=== PATIENT | male | born 1980 | race Caucasian/White ===

== ENCOUNTER 2018-12-24 09:08 | Day surgery (SDC) | payer OTHER ==
[2018-12-23 10:28] VITALS: BMI 25.1
[~2018-12-24 09:08] MED LIST: BUPIVACAINE HCL/PF 0.25% (2.5MG/ML) 10 ML VIAL IJ ONE
[2018-12-24] MEDS ORDERED: BUPIVACAINE HCL/PF 2.5 MG/ML - 30 ML VIAL IJ ONE (10:10)
[2018-12-24] MEDS ORDERED: DEXAMETHASONE SOD PHOSPHATE 4 MG/1 ML VIAL ONE (10:20)
[2018-12-24] MEDS ORDERED: ONDANSETRON 4 MG/2 ML VIAL ONE (10:20)
[2018-12-24] MEDS ORDERED: MIDAZOLAM HCL 2 MG/2 ML SINGLE DOSE VIAL ONE (10:21)
[2018-12-24] MEDS ORDERED: PROPOFOL 20 ML ONE (10:31)
[2018-12-24] MEDS ORDERED: ceFAZolin SODIUM 1 GM VIAL ONE (10:32)
[2018-12-24] MEDS ORDERED: SUCCINYLCHOLINE CHLORIDE 200 MG/10 ML SYRINGE ONE (10:32)
[2018-12-24] MEDS ORDERED: oxyCODONE HCL 5 MG TABLET PO PRN ×2 (11:20)
[2018-12-24] MEDS ORDERED: ONDANSETRON 4 MG/2 ML VIAL IVPUSH PRN (11:20)
[2018-12-24] MEDS ORDERED: BUPIVACAINE HCL/PF 0.25% (2.5MG/ML) 10 ML VIAL IJ ONE (11:25)
[2018-12-24] MEDS ORDERED: LACTATED RINGERS SOLUTION 1,000 ML IV SCH (11:30)
[2018-12-24 14:05] VITALS: BP 121/72; PULSE 70; TEMP 97.9
--- NOTE | 2018-12-24 14:48 | OP ---
DATE OF OPERATION: 12/24/2018 Done at [facility] SURGEON: Amor Freitas MD BIBLICAL STUDIES PROFESSOR: MJ Turner PREOPERATIVE DIAGNOSES: 1. Left knee lateral meniscal tear. 2. Left knee cartilage injury. 3. Left knee synovitis. POSTOPERATIVE DIAGNOSES: 1. Left knee lateral meniscal tear. 2. Left knee cartilage injury. 3. Left knee synovitis. PROCEDURES: 1. Left knee arthroscopy with partial meniscectomy lateral meniscus, CPT code 18380. 2. Left knee arthroscopy with chondroplasty, CPT code 40112. 3. Left knee arthroscopy with synovectomy, CPT code 08285. FINDINGS: 1. Medial meniscus tearing. 2. Lateral meniscus bucket handle tear from the posterior to central 1/3 with a complex tear of the anterior 1/3 of the lateral meniscus. 3. Synovitis patellofemoral medial and lateral notch area. 4. Minimal cartilage injury medial joint line. 5. ACL and PCL intact. 6. Minor grade 2 changes anterior lateral tibial plateau. 7. Central grade 2 cartilage injury patella and patellofemoral trochlea. 8. Large medial plica with thickened scar tissue anteriorly and medially. PROCEDURE: Informed consent was obtained. The patient came to the operating room, where the lower extremity was prepped and draped in a sterile fashion. A tourniquet was placed on the upper thigh, but not inflated. Using standard arthroscopic technique, a lateral incision and portal was made to allow for introduction of the camera into the suprapatellar bursa. This was then taken to the medial joint line, where under direct visualization, a medial incision and portal was made. Excessive synovium noted in the medial, lateral and patellofemoral and notch area was removed by an upbiter, shaver and Bovie cautery. This was found to bring in inflammatory tissue into the joint surface, a source of pain and dysfunction. Probing of the medial and lateral meniscus found tears, as described in the findings. These were removed with the upbiter and shaver and taken back to a stable rim. Grade 2 to 3 degenerative changes were treated with a chondroplasty, removing all flaking surfaces with low-setting Bovie along the periphery to prevent further flaking. Grade 4 changes, as noted, were treated with an abrasoplasty, creating a bleeding surface at the bone/cartilage interface. Aggressive debridement with shaver/vasu created bleeding surface. Micro fracture also done when indicated in findings. All areas of the knee were once again reexamined. The knee was then drained and a single suture was placed in all portals. A sterile dressing was placed and the patient was transferred to the recovery room without complication. The PA listed above was present and assisted at surgery. Their presence was absolutely medically necessary for the completion of the procedure. They helped hold the arthroscopy, pass instruments (and implants when indicated) and the procedure could not have been completed without their assistance. AMOR FREITAS M.D. [id number]
--- NOTE | 2018-12-29 15:58 | PATH ---
Surgical Pathology Report Patient Name: DANA MORENO Med. Rec. #: [id number] /Age/Gender: 1980 (Age: 38) / M Account: [id number] Location: [facility] AMBULATORY Taken: 12/24/2018 Received: 12/24/2018 Reported: 12/29/2018 Physicians: Amor Newman M.D. Specimen(s) Received LEFT KNEE SHAVINGS Clinical History Internal derangement of the left knee Final Diagnosis KNEE, LEFT, ARTHROSCOPIC SHAVINGS: FIBROSYNOVIAL TISSUE AND CARTILAGE. Electronically Signed Alyssa Cooper M.D. Gross Description Received in formalin, labeled "left knee shavings," is a 4.2 x 4.0 x 0.3 cm. aggregate of bautista-yellow soft tissue fragments. A operations support representative portion is submitted in one cassette. /12/28/2018 saudi/12/28/2018
== END 2018-12-24 13:42 | disposition home or self-care (01) ==
LOC: FASU 09:08
PROVIDERS: ATTEND Orthopaedic Surgery
PROC: 0SBD4ZZ Excision of Left Knee Joint, Percutaneous Endoscopic Approach (ICD-10-PCS; 2018-12-24)
PROC: 0SBD4ZZ Excision of Left Knee Joint, Percutaneous Endoscopic Approach (ICD-10-PCS; principal; 2018-12-24 11:00)
DX: S83.282A Other tear of lateral meniscus, current injury, left knee, initial encounter (principal); S83.8X2A Sprain of other specified parts of left knee, initial encounter; M65.862 Other synovitis and tenosynovitis, left lower leg; X58.XXXA Exposure to other specified factors, initial encounter; Y93.9 Activity, unspecified; Y92.9 Unspecified place or not applicable
CPT/HCPCS: 88304-TC; 94760